=== PATIENT | male | born 1965 ===

== ENCOUNTER 2020-11-19 05:26 | Day surgery (SDC) | payer BC ==
[2020-11-11 13:06] VITALS: BP 163/97
[~2020-11-19] VITALS: Ht 172.7 cm; Wt 115.0 kg
[~2020-11-19 05:26] MED LIST: HYDR25TA6 PO; LEVO175T2 PO; LOSA50TA2 PO; MULT-658 PO; SIMV20TA19 PO
[2020-11-19] MEDS ORDERED: EPINEPHRINE 1 MG/ML, 1ML ONE (06:04)
[2020-11-19] MEDS ORDERED: LIDOCAINE 1%, 20ML ONE (06:04)
[2020-11-19] MEDS ORDERED: OXYMETAZOLINE NASAL SPRAY 0.05%,30ML ONE (06:05)
[2020-11-19] MEDS ORDERED: EPINEPHRINE TOPICAL SOLN 1 MG/ML, 30ML ONE (06:06)
[2020-11-19] MEDS ORDERED: BACITRACIN ZINC OINT 500U/GM, 0.9 GM ONE (06:07)
[2020-11-19] MEDS ORDERED: FLUORESCEIN SODIUM 500 MG/5 ML ONE ×2 (06:07→14:28)
[2020-11-19] MEDS ORDERED: BACITRACIN OINT 500U/GM, 15 GM ONE (06:07)
[2020-11-19 06:27] VITALS: BP 163/97
[2020-11-19] MEDS ORDERED: CHLORHEXIDINE 15 ML UDC ONE (06:38)
[2020-11-19] MEDS ORDERED: MIDAZOLAM 1 MG/ML, 2ML ONE (06:46)
[2020-11-19] MEDS ORDERED: FENTANYL PF 100 MCG/2ML ONE (06:47)
[2020-11-19 06:57] LABS: ALANINE AMINOTRANSFERASE 44 U/L (12-78); ALBUMIN 3.7 g/dL (3.4-5.0); ANION GAP 8 mmol/L (5-15); CALCIUM 8.3 mg/dL (8.5-10.1); CHLORIDE 99 mmol/L (98-107); CREATININE 0.81 mg/dL (0.7-1.3)
[2020-11-19 06:59] LABS: ALKALINE PHOSPHATASE 48 U/L (45-117); BILIRUBIN,TOTAL 0.4 mg/dL (0.2-1.0); TOTAL PROTEIN 7.4 g/dL (6.4-8.2)
[2020-11-19] MEDS ORDERED: CHLORHEXIDINE 15 ML UDC PO ONE (07:00)
[2020-11-19] MEDS ORDERED: LACTATED RINGERS 1,000 ML IV SCH (07:00)
[2020-11-19] MEDS ORDERED: SCOPOLAMINE 1MG PATCH TD ONE (07:05)
[2020-11-19] MEDS ORDERED: PROPOFOL 10 MG/ML, 20ML ONE (07:11)
[2020-11-19] MEDS ORDERED: ROCURONIUM 10 MG/ML,10ML ONE (07:11)
[2020-11-19] MEDS ORDERED: EPHEDRINE 50 MG/ML, 1ML ONE (07:11)
[2020-11-19] MEDS ORDERED: DEXAMETHASONE 4 MG/ML, 1ML ONE (07:11)
[2020-11-19] MEDS ORDERED: SUCCINYLCHOLINE 20 MG/ML, 10ML ONE (07:11)
[2020-11-19] MEDS ORDERED: GLYCOPYRROLATE 0.2MG/1ML, 5ML ONE (07:11)
[2020-11-19] MEDS ORDERED: NEOSTIGMINE 1 MG/ML, 10ML ONE (07:11)
[2020-11-19] MEDS ORDERED: ONDANSETRON 2MG/ML, 2ML ONE (07:11)
[2020-11-19] MEDS ORDERED: CEFAZOLIN 1,000 MG ONE (07:11)
[2020-11-19] MEDS ORDERED: SCOPOLAMINE 1MG PATCH TD SCH (07:30)
[2020-11-19] MEDS ORDERED: MEPERIDINE/PF 25MG/0.5ML IVPush PRN (08:00)
[2020-11-19] MEDS ORDERED: HYDROcodone/APAP 7.5-325MG/15ML UDC PO PRN (08:00)
[2020-11-19] MEDS ORDERED: HYDROmorphone 1 MG/ML, 1ML INJ IVPush PRN (08:00)
[2020-11-19] MEDS ORDERED: OXYcodone 5 MG/5 ML ORAL.SOL UDC PO PRN (08:00)
[2020-11-19] MEDS ORDERED: PROMETHAZINE 25 MG/ML, 1ML IVPush PRN (08:00)
[2020-11-19] MEDS ORDERED: ONDANSETRON 2MG/ML, 2ML IVPush PRN (08:00)
[2020-11-19] MEDS ORDERED: FENTANYL PF 100 MCG/2ML IV PRN (08:00)
[2020-11-19] MEDS ORDERED: HYDROcodone/APAP 7.5-325MG/15ML UDC ONE (09:21)
[2020-11-19] MEDS ORDERED: ACETAMINOPHEN 325 MG TABLET PO PRN (10:00)
== END 2020-11-19 11:00 | disposition home or self-care (01) ==
LOC: OUT 05:26
PROVIDERS: ATTEND Otolaryngology
DX: J01.01 Acute recurrent maxillary sinusitis (principal); J32.0 Chronic maxillary sinusitis; H90.3 Sensorineural hearing loss, bilateral; I10 Essential (primary) hypertension; E66.9 Obesity, unspecified; Z68.38 Body mass index [BMI] 38.0-38.9, adult; Z79.890 Hormone replacement therapy; Z79.899 Other long term (current) drug therapy; Z88.5 Allergy status to narcotic agent; Z98.890 Other specified postprocedural states; Z91.048 Other nonmedicinal substance allergy status; Z83.3 Family history of diabetes mellitus; Z82.49 Family history of ischemic heart disease and other diseases of the circulatory system
CPT/HCPCS: 31253; 31255; 31256; 36415; 80053; 88304; 88311; J0171; J0330; J0690; J1100; J2250; J2405; J2704; J2710; J3010; J7120

== ENCOUNTER 2020-11-26 07:38 | Day surgery (SDC) | payer BC ==
[~2020-11-26] VITALS: Ht 172.7 cm; Wt 115.1 kg
[2020-11-26 08:17] VITALS: BP 142/95
[2020-11-26] MEDS ORDERED: LIDOCAINE 4%, 4 ML SYR/CANN TP ONE (09:19)
== END 2020-11-26 09:45 | disposition home or self-care (01) ==
LOC: OUT 07:38
PROVIDERS: ATTEND Otolaryngology
DX: J01.01 Acute recurrent maxillary sinusitis (principal); J32.0 Chronic maxillary sinusitis; J34.89 Other specified disorders of nose and nasal sinuses; Z20.822 Contact with and (suspected) exposure to COVID-19
CPT/HCPCS: 87635